=== PATIENT | female | born 1945 | race Caucasian/White ===

== ENCOUNTER 2024-11-05 14:41 | Inpatient (IN) ==
[2024-11-05 15:40] LABS: Hematocrit (blood only) 38.2 % (37.0-47.0); Hemoglobin 12.4 g/dl (12.0-16.0); Immature Granulocytes # (auto) 0.07 K/uL (0.01-0.20); Immature Granulocytes % (auto) 0.7 %; Mean Corpuscular Hemoglobin 30.4 pg (25.0-34.0); Mean Corpuscular Volume 93.6 fL (80.0-100.0); Platelet Count 353 K/uL (130-400); RDW Standard Deviation 46.7 fL (36.4-46.3); Red Blood Count 4.08 M/uL (4.20-5.40); White Blood Count 9.99 K/ul (4.8-10.8)
[2024-11-05 15:57] LABS: Alanine Aminotransferase 11.0 U/L (7-52); Albumin Globulin Ratio 1.3 (0.9-2); Albumin Level 4.1 gm/dl (3.4-5.0); Alkaline Phosphatase 65.0 U/L (34-104); Anion Gap 6.0 (3-11); Bilirubin,Total 0.3 mg/dl (0.2-1.0); Blood Urea Nitrogen 11.0 mg/dl (6-23); Calcium 9.0 mg/dl (8.6-10.3); Carbon Dioxide 26.0 mmol/L (21-32); Chloride 106.0 mmol/L (98-107); Creatinine Clr Calc Pharmacy 42.1 ml/min; Globulin 3.2 gm/dl (2.5-4.0); Glucose 109.0 mg/dl (70-99(Fasting)); Potassium 4.4 mmol/L (3.5-5.1); Sodium 138.0 mmol/L (136-145); Total Protein 7.3 gm/dl (6.0-8.3)
[2024-11-05] MEDS: SODIUM CHLORIDE 0.9% 500 ML IV STA (17:18)
--- NOTE | 2024-11-05 17:18 | Emergency Department Note ---
Impression & Plan Diffuse abdominal pain, Failure of outpatient treatment, Nausea ED Provider Note NAME: RADHA COTE AGE: 79 SEX: F : 1945 ARRIVES VIA: Walk-In INFORMANT: [Patient][] ED PROVIDER(S): [Edwin Watson MD] CHIEF COMPLAINT: Abdominal pain HISTORY OF PRESENT ILLNESS: The patient is an 79-year-old female who has had 2 weeks of symptoms. She has had some nausea and vomiting and some crampy abdominal pain. She has not had a good bowel movement in over 2 weeks. She was seen in the ED twice already. CT imaging did not show any significant constipation or bowel obstruction. CTA did not show any stenosis or clot. The patient states that her symptoms are ongoing. She is not improving, she has progressed to the point now where the pain is constant. There has been no fever, no cough or congestion. No urinary complaints. She did talk with GI today, she was referred to the hospital for admission and an inpatient workup. PMHx/PSHx/Social Hx: See Below PHYSICAL EXAM: GENERAL: Patient is in mild distress from pain HEENT: No acute trauma, normocephalic atraumatic, mucous membranes moist, no nasal congestion. NECK: No stridor, no adenopathy, no meningismus, trachea is midline. LUNGS: Clear to auscultation bilaterally, no wheeze, no rhonchi, breath sounds equal. HEART: Subtle systolic murmur, regular rate and rhythm. ABDOMEN: Soft, tender diffusely about the abdomen, no distention. EXTREMITIES: No cyanosis, full range of motion of all the joints without pain or difficulty. NEUROLOGIC: Oriented x 3, no acute motor or sensory deficits, no focal weakness. SKIN: No jaundice, no diaphoresis. Somewhat pale. DIFFERENTIAL DIAGNOSIS: Bowel ischemia, diverticulitis, colitis, dehydration, constipation, bowel obstruction, urinary retention or UTI, among others. EMERGENCY DEPARTMENT PROCEDURES: MEDICAL DECISION MAKING: There is no leukocytosis or concerning anemia. There is a normal platelet count. No coagulopathy. No renal failure or significant electrolyte abnormality. ECG shows a sinus rhythm, no ST elevation. Cardiac enzyme testing x 1 is not consistent with acute cardiac injury. Lactic acid level is not elevated making bowel ischemia less likely. No findings to suggest pancreatitis. No worrisome liver enzyme elevation. Urinalysis does not show findings of infection. On exam, patient was not toxic or febrile but she was clearly uncomfortable. She had pain to palpate about the abdomen. No abdominal distention. The patient was given IV saline for hydration. She received IV Zofran, IV morphine. She was given IV Tylenol. The patient has failed outpatient management for her discomfort. She has had 2 visits already to the ED. CT imaging so far has been unrevealing. She was sent in today for an inpatient hospitalization and further GI workup. At this point, the patient is not doing well outpatient and is not capable of being discharged home. I do think admission and further workup is warranted. I spoke with the patient and the . I spoke with case management. The on-call hospitalist was consulted. Currently, the cause for her complaints is unclear. Prior/Outside records/notes reviewed: Previous ED visit notes describing her presentation, workup and outpatient plan. ECG per my interpretation: Indication was abdominal pain. The ECG shows a normal sinus rhythm with a rate of 76. There is no ST elevation, no PVCs. The QTc is 405. Continuous Cardiac Monitoring per my interpretation: An order was placed for continuous cardiac monitoring. The monitor shows a rate of 72 with normal sinus rhythm. Imaging/x-ray results per my interpretation: Chronic Medical/Social conditions affecting care: Advanced age. Care/Management discussed with: Case management, the on-call hospitalist. Level of care consideration(s): After review of the information above and other included data: --I believe the patient requires escalation of care to admission DISPOSITION: Admission Past Med/Surg History Problem List (Updated 11/05/24 @ 22:07 by Edwin Watson MD) Nausea (Acute) Failure of outpatient treatment (Acute) Diffuse abdominal pain (Acute) Abnormal finding on CT scan Hypertension Constipation (Acute) Medical History Abdominal pain Surgical History Hx of cataract extraction left Hx of breast lump removal left, benign History of open reduction and internal fixation (ORIF) procedure left wrist>pinning, pin removed later Hx of bladder repair surgery bladder tacking Hx laparoscopic cholecystectomy Hx of abdominal hysterectomy ~over 40 years ago, one ovary remains Hx of colonoscopy most recent 2023 Social History Smoking Status: Never smoker Second Hand Exposure: Yes (hx, years ago); Do You Dip or Chew Tobacco: No; Hx Alcohol Use: No Hx Substance Use: No Preferred Language: Bengali Communication Ability: Effective 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 Beliefs That Will Affect Care: None Current Living Situation: Spouse Feels Safe at Home: Yes Assistive Devices: Denture - Upper and Glasses Allergies Allergies Allergy/AdvReac Type Severity Reaction Status Date / Time No Known Allergies Allergy Verified 11/05/24 17:25 Home Meds Home Medications Medication Instructions Recorded Confirmed amlodipine 10 mg tablet 10 mg PO HS 01/24/24 11/05/24 lisinopril 20 mg tablet 20 mg PO BID 01/24/24 11/05/24 multivitamin 1 tab PO HS 01/24/24 11/05/24 estradiol 0.01% (0.1 mg/gram) 1 applic vaginal DAILY PRN Dryness 11/01/24 11/05/24 vaginal cream inulin-sorbitol 2 gram chewable 1 tab PO DAILY 11/01/24 11/05/24 tablet bevacizumab 1.25 mg/0.05 mL See Rx Instructions .Route .COMPLEX 11/05/24 11/05/24 intravitreal syringe (Avastin) vitamins A,C,G-aqyd-vgjjnp 2,148 2 tab PO BID 11/05/24 11/05/24 mcg-113 mg-45 mg-17.4 mg tablet (PreserVision AREDS) Previous Rx's Medication Instructions Recorded ondansetron 4 mg disintegrating 4 mg PO Q8H PRN nausea and 11/01/24 tablet vomiting #10 tabs ketorolac 10 mg tablet 10 mg PO BID PRN pain #10 tabs 11/03/24 sennosides 8.6 mg tablet (Senna 8.6 mg PO BID PRN constipation #14 11/03/24 Laxative) tabs Results & Data (ED) Vital Signs Vital Signs - 24 hr 11/05/24 14:52 11/05/24 17:00 11/05/24 17:24 Temperature 36.8 C Temperature Source Temporal Artery Scan Pulse Rate 99 H 72 Pulse Rate [Apical] 61 Respiratory Rate 20 16 Respiratory Effort / Characteristics Non-Labored Spontaneous Blood Pressure 148/78 H Blood Pressure [Right Arm] 132/69 Blood Pressure Mean 101 Blood Pressure Mean [Right Arm] 90 Pulse Oximetry 96 96 Oxygen Delivery Method Room Air Room Air Sepsis Recent Fever Within 48 Hours No Sepsis New/Unexplained Change in Mental Status N/A Sepsis Action Taken by Nursing No Action Required 11/05/24 17:24 11/05/24 19:00 11/05/24 21:00 Temperature Temperature Source Pulse Rate 69 Pulse Rate [Apical] 71 65 Respiratory Rate 16 18 18 Respiratory Effort / Characteristics Non-Labored Spontaneous Non-Labored Spontaneous Blood Pressure Blood Pressure [Right Arm] 117/63 134/68 Blood Pressure Mean Blood Pressure Mean [Right Arm] 81 90 Pulse Oximetry 95 92 91 Oxygen Delivery Method Room Air Room Air Room Air Sepsis Recent Fever Within 48 Hours Sepsis New/Unexplained Change in Mental Status Sepsis Action Taken by Correction Medications Current Medication List: was personally reviewed by me Laboratory Data Attestation: I reviewed the patient's lab results. 11/05/24 15:18 11/05/24 15:18 Lab Results 11/05/24 11/05/24 11/05/24 Range/Units 15:18 17:20 18:00 WBC 9.99 (4.8-10.8) K/ul RBC 4.08 L (4.20-5.40) M/uL Hgb 12.4 (12.0-16.0) g/dl Hct 38.2 (37.0-47.0) % MCV 93.6 (80.0-100.0) fL MCH 30.4 (25.0-34.0) pg MCHC 32.5 (32.0-36.0) g/dL RDW Std Deviation 46.7 H (36.4-46.3) fL RDW Coeff of Erica 13.7 (11.5-14.5) % Plt Count 353 (130-400) K/uL MPV 8.9 L (9.4-12.4) fL Immature Gran % (Auto) 0.7 % Neut % (Auto) 73.5 % Lymph % (Auto) 18.2 % Nance % (Auto) 6.6 % Eos % (Auto) 0.6 % Baso % (Auto) 0.4 % Neut # (Auto) 7.34 H (1.40-6.50) K/uL Lymph # (Auto) 1.82 (1.20-3.40) K/uL Nance # (Auto) 0.66 H (0.11-0.59) K/uL Eos # (Auto) 0.06 (0.00-0.50) K/uL Baso # (Auto) 0.04 (0.00-0.20) K/uL Immature Gran # (Auto) 0.07 (0.01-0.20) K/uL PT 10.6 (9.0-12.0) Seconds INR 1.0 (0.9-1.1) APTT 28 (21-31) Seconds PTT Ratio 1.0 Sodium 138 (136-145) mmol/L Potassium 4.4 (3.5-5.1) mmol/L Chloride 106 (98-107) mmol/L Carbon Dioxide 26 (21-32) mmol/L Anion Gap 6 (3-11) BUN 11 (6-23) mg/dl Creatinine 0.92 (0.6-1.2) mg/dl Est Cr Clr Drug Dosing 42.1 ml/min eGFR 62.94 BUN/Creatinine Ratio 12.0 (10-20) Glucose 109 H (70-99(Fasting)) mg/dl Lactate 0.9 (0.4-2.0) mmol/L Calcium 9.0 (8.6-10.3) mg/dl Total Bilirubin 0.3 (0.2-1.0) mg/dl AST 17 (13-39) U/L ALT 11 (7-52) U/L Alkaline Phosphatase 65 (34-104) U/L Troponin I High Sens 2.5 (0-14) pg/ml Total Protein 7.3 (6.0-8.3) gm/dl Albumin 4.1 (3.4-5.0) gm/dl Globulin 3.2 (2.5-4.0) gm/dl Albumin/Globulin Ratio 1.3 (0.9-2) Lipase 22 (11-82) U/L Urine Color Yellow Urine Appearance Clear (Clear) Urine pH 5.5 (4.5-7.5) Ur Specific [place] 1.009 (1.000-1.030) Urine Protein Negative (Negative) Urine Glucose (UA) Negative (Negative) Urine Ketones Negative (Negative) Urine Blood Negative (Negative) Urine Nitrite Negative (Negative) Urine Bilirubin Negative (Negative) Urine Urobilinogen Negative (Negative) Ur Leukocyte Esterase Trace H (Negative) Urine WBC (Auto) 0-5 (0-5) /hpf Urine RBC (Auto) 0-2 (0-2) /hpf U Hyaline Cast (Auto) 0-2 (0-2) /lpf U Epithel Cells (Auto) 0-2 (0-2) /hpf Urine Bacteria (Auto) None Seen (None Seen) Urine Comment Administered Medications Sodium Chloride (Nss) 1,000 mls @ 80 mls/hr IV .[id number] CRISTIAN Stop: 11/06/24 07:29 Last Admin: 11/05/24 19:03 Dose: 80 mls/hr Documented By: RISSA Discontinued Medications Sodium Chloride (Nss) 500 mls @ 999 mls/hr IV .Q31M STA Stop: 11/05/24 17:35 Last Infusion: 11/05/24 18:22 Dose: Infused Documented By: Admin: 11/05/24 17:18 Dose: 999 mls/hr Documented By: RISSA Acetaminophen (Ofirmev) 1,000 mg in 100 mls @ 400 mls/hr IV Q8H CRISTIAN Stop: 11/05/24 19:14 Last Infusion: 11/05/24 21:36 Dose: Infused Documented By: Admin: 11/05/24 19:03 Dose: 400 mls/hr Documented By: RISSA Pantoprazole Sodium (Protonix) 40 mg in 10 mls @ 5 mls/min IV ONE ONE Stop: 11/05/24 20:46 Last Admin: 11/05/24 21:29 Dose: 5 mls/min Documented By: RISSA Lactulose (Lactulose Syrup 20 Gm/30 Ml Udc) 30 gm PO NOW STA Stop: 11/05/24 18:47 Last Admin: 11/05/24 19:05 Dose: 30 gm Documented By: RISSA Magnesium Citrate (Magnesium Citrate 296 Ml/Btl) 148 ml PO TODAY@2200 ONE Stop: 11/05/24 22:01 Last Admin: 11/05/24 21:29 Dose: 148 ml Documented By: RISSA Morphine Sulfate (Morphine Sulfate 4 Mg/Ml 1 Ml Carp\Vial) 4 mg IV NOW STA Stop: 11/05/24 17:06 Last Admin: 11/05/24 17:19 Dose: 4 mg Documented By: RISSA Ondansetron HCl (Ondansetron Inj 2 Mg/Ml 2 Ml Vial) 4 mg IV NOW STA Stop: 11/05/24 17:06 Last Admin: 11/05/24 17:19 Dose: 4 mg Documented By: RISSA Imaging Data Radiologist's Impression: Abdomen/Pelvis CT 11/05/24 18:44 EXAMINATION: Abdomen and pelvis CT without CLINICAL HISTORY: Constipation PRIORS: CT AP 11/03/2024 with TECHNIQUE: Contiguous axial images were obtained through the abdomen and pelvis without the use of intravenous contrast. Sagittal and coronal reformations are supplied. FINDINGS: No acute abnormality in the lung bases. Moderate circumferential wall thickening of the duodenum is present involving the 1st and 2nd portion of the duodenum, with moderate regional inflammatory change, image 27 through 36, series 2. Multiple foci of gas present within the proximal to mid duodenum wall, image 35. The stomach is under distended with possible wall edema in the pylorus. No extraluminal gas or ascites. Severe diverticulosis of the sigmoid colon present. Oral contrast reaches the level of the transverse colon. No dilated loops of bowel. Solid organs are unremarkable. Gallbladder surgically absent. No free fluid in the pelvis. Moderate atherosclerotic disease of the aorta. Moderate osseous demineralization noted. IMPRESSION: Moderate duodenal and pylorus wall thickening with edema and surrounding inflammatory change in the mesenteric fat. A small amount of gas is present in the mid duodenum wall, compatible with duodenitis with duodenal ulcer/peptic ulcer disease, appearing in the interval. No acute complication at this time. GI consultation suggested. ACT 112: Positive. There are findings on this examination that require communication between the performing entity and the patient following Patient Test Result Information Act ([place] ACT 112) guidelines. Electronically signed by Edilma Emerson 11-05-2024 7:45 PM Discharge Plan Visit Data Chief Complaint: Constipation Stated Complaint: PAIN IN GROIN ED Provider: Edwin Watson Discharge Problem: Diffuse abdominal pain, Failure of outpatient treatment, Nausea Patient Disposition: Admitted As Inpatient Condition: Fair Forms Stand Alone Forms: [employer] Prescriptions Prescriptions: No Action estradiol 0.01 % (0.1 mg/gram) cream 1 applic VAGINAL DAILY PRN (Reason: Dryness) inulin-sorbitol 2 gram Tablet,Chewable 1 tab PO DAILY ondansetron 4 mg tablet,disintegrating 4 mg PO Q8H PRN (Reason: nausea and vomiting) Qty: 10 0RF multivitamin Tablet 1 tab PO HS lisinopril 20 mg Tablet 20 mg PO BID amlodipine 10 mg Tablet 10 mg PO HS ketorolac 10 mg tablet 10 mg PO BID PRN (Reason: pain) Qty: 10 0RF sennosides [Senna Laxative] 8.6 mg tablet 8.6 mg PO BID PRN (Reason: constipation) Qty: 14 0RF PreserVision AREDS 2,148 mcg-113 mg-45 mg-17.4mg Tablet 2 tab PO BID Rx Instructions: administer with AM and PM meals bevacizumab [Avastin] 1.25 mg/0.05 mL Syringe See Rx Instructions .ROUTE .COMPLEX Rx Instructions: last injection 4 mo ago Referrals Referrals: Nathan Kellogg MD [Primary Care Provider] -
[2024-11-05] MEDS: MoRPHine SULFATE 4 MG/ML 1 ML CARP\\VIAL IV STA (17:19)
[2024-11-05] MEDS: ONDANSETRON INJ 2 MG/ML 2 ML VIAL IV STA (17:19)
[2024-11-05 17:49] LABS: Lipase 22.0 U/L (11-82)
[2024-11-05 18:07] LABS: INR 1.0 (0.9-1.1); Partial Thromboplastin Time 28 Seconds (21-31); Prothrombin Time 10.6 Seconds (9.0-12.0)
--- NOTE | 2024-11-05 18:07 | History & Physical Report ---
Date of Service November 05, 2024 Assessment & Plan (1) Constipation: (2) Abdominal pain: Plan: This is an 79-year-old female with PMH of HTN, macular degeneration who recently established with [facility] due to constipation concern starting 3 weeks ago. Since 10/31 has been seen in clinic by GI and in [facility] ER twice - trialed dulcolax, fleet enemas x 2, discontinued fiber pill, Miralax BID, Senokot bid -11/01: CT abd/pelvis without obstruction or acute change -11/03: CTA abd/pelvis no acute finding or significant change -Directed by GI to ER today due to ongoing discomfort and no bowel movement in 2 weeks -Given Lactulose x 1. Mag citrate added for this evening as needed -CT abd pelvis wo con - moderate duodenal and pylorus wall thickening with edema and surrounding inflammatory change in the mesenteric fat. A small amount of gas is present in the mid duodenum wall, compatible with duodenitis with duodenal ulcer/peptic ulcer disease, appearing in the interval. Severe diverticulosis seen in colon, no diverticulitis. No acute complication at this time. GI consultation suggested. -GI consulted for tomorrow -Adding IV PPI -NPO at midnight -Pain control (3) Hypertension: Plan: Normotensive at 117/63. Resume home amlodipine and lisinopril when diet advanced (4) Abnormal finding on CT scan: Plan: Incidental Findings on CT abd/pelvis 11/01/24- There is moderate atherosclerotic calcification and mild ectasia of the abdominal aorta. Further work up, man agement, and follow-up as outpatient No chest pain, HS troponin WNL, ECG ordered in ED - pending, follow Plan DVT Ppx: SCDs for now in case of endoscopy tomorrow Code status: FULL PCP: Nathan Kellogg Dispo: Admitted to med/surg Patient seen in collaboration with Dr. Marie. Please see addendum. I spent a total of 65 minutes coordinating, documenting, and providing care for this patient excluding time spent in the performance of separately billed services or time spent by another provider/QHP. History of Present Illness Chief Complaint: Constipation, sent in by GI Primary Care Provider: Nathan Kellogg MD This is an 79-year-old female with PMH of HTN, macular degeneration who recently established with [facility] due to constipation concern starting 3 weeks ago. History obtained from patient and chart review. Patient experiencing constipation and some abdominal pain and saw GI in clinic initially on 10/31. Dulcolax 5 mg had been ineffective. Passed some liquid with "chunks of stool". Told to stop fiber pill, administered Fleet enema, MiraLAX twice daily. Presented to the ER the next day after no bowel movement and episode of vomiting x 1. CT abd/pelvis done in ER on the 11/01 without blockage seen. Returned to ED on 11/03 with ongoing pain and underwent abdominal CTA that showed no acute finding or significant change. Mild fluid throughout the large bowel. Was prescribed tramadol and Senokot 8.6 mg twice daily and discharged home. Followed up over [email or web address] messaging with GI provider earlier today and sent over for further workup and consideration of colonoscopy. Still tolerating PO liquids and food. Had a large dinner last night of Romansh food. No true bowel movement in 2 weeks but not even passing small amounts of stool or liquid per rectum for 5 days. Abdominal pain is in bandlike distribution across lower abdomen, R>L. Denies issues with constipation or other GI pathology in the past. Does not routinely use NSAIDs. No known recent gastroenteritis. No F/C, lightheadedness, headache, CP, SOB, nausea, vomiting, dysuria. Allergies Allergy/AdvReac Type Severity Reaction Status Date / Time No Known Allergies Allergy Verified 11/05/24 17:25 Home Medications Medication Instructions Recorded Confirmed Type amlodipine 10 mg tablet 10 mg PO HS 01/24/24 11/05/24 History lisinopril 20 mg tablet 20 mg PO BID 01/24/24 11/05/24 History multivitamin 1 tab PO HS 01/24/24 11/05/24 History estradiol 0.01% (0.1 mg/gram) 1 applic vaginal DAILY PRN Dryness 11/01/24 11/05/24 History vaginal cream inulin-sorbitol 2 gram chewable 1 tab PO DAILY 11/01/24 11/05/24 History tablet ondansetron 4 mg disintegrating 4 mg PO Q8H PRN nausea and 11/01/24 11/05/24 Rx tablet vomiting #10 tabs ketorolac 10 mg tablet 10 mg PO BID PRN pain #10 tabs 11/03/24 11/05/24 Rx sennosides 8.6 mg tablet (Senna 8.6 mg PO BID PRN constipation #14 11/03/24 11/05/24 Rx Laxative) tabs bevacizumab 1.25 mg/0.05 mL See Rx Instructions .Route .COMPLEX 11/05/24 11/05/24 History intravitreal syringe (Avastin) vitamins A,C,V-uxxm-fudzka 2,148 2 tab PO BID 11/05/24 11/05/24 History mcg-113 mg-45 mg-17.4 mg tablet (PreserVision AREDS) Past Med/Surg History Problem List (Updated 11/05/24 @ 20:32 by Jada Kidd PA-C) Abnormal finding on CT scan Hypertension Constipation (Acute) Abdominal pain (Acute) Medical History Hypertension Surgical History Hx of cataract extraction left Hx of breast lump removal left, benign History of open reduction and internal fixation (ORIF) procedure left wrist>pinning, pin removed later Hx of bladder repair surgery bladder tacking Hx laparoscopic cholecystectomy Hx of abdominal hysterectomy ~over 40 years ago, one ovary remains Hx of colonoscopy most recent 2023 Social History Smoking Status: Never smoker Second Hand Exposure: Yes (hx, years ago); Do You Dip or Chew Tobacco: No; Hx Alcohol Use: No Hx Substance Use: No Preferred Language: German Communication Ability: Effective Supervisor [employer] Required: No Beliefs That Will Affect Care: None Current Living Situation: Spouse Feels Safe at Home: Yes Assistive Devices: Denture - Upper and Glasses Review of Systems Review of Systems: At least ten systems reviewed and negative except as noted in the HPI. Physical Exam Physical Exam: General Appearance: WD/WN, vitals as above, NAD, sitting up in bed, pleasant but appears uncomfortable Head: normocephalic, atraumatic Eyes: normal inspection, PERRL, conjunctivae normal, anicteric sclerae ENT: external ear and nose normal, oropharynx normal Neck: normal visual inspection Respiratory: normal respiratory effort, lungs clear to auscultation, no wheeze, rales, rhonchi. No accessory muscle use Cardiovascular: regular rate, rhythm, normal peripheral pulses, no BLE edema Abdomen/GI: +hypoactive bowel sounds, soft, TTP RLQ > LLQ Extremities/Musculoskeletal: no cyanosis or clubbing, extremities motor strength 5/5 Neurologic: PERRL, EOMI, accommodation nl, no face palsy, no dysarthria, CN's II-XI intact bilaterally and moves all extremities Psychiatric: A+Ox3, euthymic affect Skin: no rashes, normal color, warm/dry Results & Data Results & Data Vital Signs (Past 12 Hours) Vital Signs Temp Pulse Pulse Resp BP BP Pulse Ox 11/05/24 17:24 69 16 95 11/05/24 17:24 61 16 132/69 96 11/05/24 17:00 72 11/05/24 14:52 36.8 C 99 H 20 148/78 H 96 O2 Del Method 11/05/24 17:24 Room Air 11/05/24 17:24 Room Air 11/05/24 17:00 11/05/24 14:52 Room Air Laboratory Results Short CBC 11/05/24 Range/Units 15:18 WBC 9.99 (4.8-10.8) K/ul Hgb 12.4 (12.0-16.0) g/dl Hct 38.2 (37.0-47.0) % Plt Count 353 (130-400) K/uL BMP 11/05/24 15:18 Sodium 138 Potassium 4.4 Chloride 106 Carbon Dioxide 26 BUN 11 Creatinine 0.92 Glucose 109 H Calcium 9.0 Liver Function 11/05/24 Range/Units 15:18 Total Bilirubin 0.3 (0.2-1.0) mg/dl AST 17 (13-39) U/L ALT 11 (7-52) U/L Alkaline Phosphatase 65 (34-104) U/L Albumin 4.1 (3.4-5.0) gm/dl Urine 11/05/24 Range/Units 18:00 Urine Color Yellow Urine Appearance Clear (Clear) Urine pH 5.5 (4.5-7.5) Ur Specific [place] 1.009 (1.000-1.030) Urine Protein Negative (Negative) Urine Glucose (UA) Negative (Negative) Diagnostic Findings Abdomen/Pelvis CT 11/05/24 18:44 EXAMINATION: Abdomen and pelvis CT without CLINICAL HISTORY: Constipation PRIORS: CT AP 11/03/2024 with TECHNIQUE: Contiguous axial images were obtained through the abdomen and pelvis without the use of intravenous contrast. Sagittal and coronal reformations are supplied. FINDINGS: No acute abnormality in the lung bases. Moderate circumferential wall thickening of the duodenum is present involving the 1st and 2nd portion of the duodenum, with moderate regional inflammatory change, image 27 through 36, series 2. Multiple foci of gas present within the proximal to mid duodenum wall, image 35. The stomach is under distended with possible wall edema in the pylorus. No extraluminal gas or ascites. Severe diverticulosis of the sigmoid colon present. Oral contrast reaches the level of the transverse colon. No dilated loops of bowel. Solid organs are unremarkable. Gallbladder surgically absent. No free fluid in the pelvis. Moderate atherosclerotic disease of the aorta. Moderate osseous demineralization noted. IMPRESSION: Moderate duodenal and pylorus wall thickening with edema and surrounding inflammatory change in the mesenteric fat. A small amount of gas is present in the mid duodenum wall, compatible with duodenitis with duodenal ulcer/peptic ulcer disease, appearing in the interval. No acute complication at this time. GI consultation suggested. ACT 112: Positive. There are findings on this examination that require communication between the performing entity and the patient following Patient Test Result Information Act ([place] ACT 112) guidelines. Electronically signed by Edilma Emerson 11-05-2024 7:45 PM
[2024-11-05 18:23] LABS: Appearance Urine Clear (Clear); Bacteria Urine Automated None Seen (None Seen); Cast Urine Automated 0-2 /lpf (0-2); Epithelial Cell Urine Auto 0-2 /hpf (0-2); Glucose Urine UA Negative (Negative); RBC Urine Automated 0-2 /hpf (0-2); WBC Urine Automated 0-5 /hpf (0-5)
[2024-11-05] MEDS ORDERED: MoRPHine SULFATE 2 MG/ML CARP IV PRN (18:49)
--- NOTE | 2024-11-05 18:52 | Communication Note ---
Date of Service: November 05, 2024 Attending Addendum: Case reviewed with the advanced practitioner. I have personally performed a history and physical examination on the patient. I have reviewed the advanced practitioner's documentation on the date of service referenced in note, and I agree with, and take responsibility for the plan of care. please refer to her notes for full details patient seen and examined, records reviewed by myself as well on exam, patient seen resting in bed, not in distress states she still has lower abdominal discomfort, morphine helping no nausea no chest pain, dyspnea, palpitations, dizziness no other symptoms VS noted and reviewed oriented x3, not in distress, speaks in sentences with no effort nor accessory muscle use normal rate, regular rhythm, no murmurs clear breath sounds bilaterally non distended, (+) hypoactive bowel sounds, soft, nontender no bipedal edema, erythema, warmth no neuro deficits all labs, imaging noted and reviewed ASSESSMENT AND PLAN> CONSTIPATION r/o OBSTRUCTION persistent, not responding to Miralax last BM repeat CT abd/pelvis Lactulose ordered PRN Mg Citrate NPO for now until CT abd/pelvis results in Incidental Findings on CT abd/pelvis 11/01/24 There is moderate atherosclerotic calcification and mild ectasia of the abdominal aorta. - Further work up, management, and ff up as outpatient other diagnoses and plan of care as per advanced practitioner's notes I spent a total of 40 minutes coordinating, documenting, and providing care for this patient, excluding time spent in the performance of separately billed services or time spent by another provider/QHP. Juan J Marie MD
[2024-11-05] MEDS ORDERED: MELATONIN 3 MG TAB PO PRN (18:58)
[2024-11-05] MEDS ORDERED: ONDANSETRON INJ 2 MG/ML 2 ML VIAL IV PRN (18:58)
[2024-11-05] MEDS: ACETAMINOPHEN 1,000 MG/100 ML VIAL IV SCH (19:03)
[2024-11-05] MEDS: SODIUM CHLORIDE 0.9% 1,000 ML IV SCH (19:03)
[2024-11-05] MEDS: LACTULOSE SYRUP 20 GM/30 ML UDC PO STA (19:05)
--- NOTE | 2024-11-05 19:45 | CT Scan Report ---
EXAMINATION: Abdomen and pelvis CT without CLINICAL HISTORY: Constipation PRIORS: CT AP 11/03/2024 with TECHNIQUE: Contiguous axial images were obtained through the abdomen and pelvis without the use of intravenous contrast. Sagittal and coronal reformations are supplied. FINDINGS: No acute abnormality in the lung bases. Moderate circumferential wall thickening of the duodenum is present involving the 1st and 2nd portion of the duodenum, with moderate regional inflammatory change, image 27 through 36, series 2. Multiple foci of gas present within the proximal to mid duodenum wall, image 35. The stomach is under distended with possible wall edema in the pylorus. No extraluminal gas or ascites. Severe diverticulosis of the sigmoid colon present. Oral contrast reaches the level of the transverse colon. No dilated loops of bowel. Solid organs are unremarkable. Gallbladder surgically absent. No free fluid in the pelvis. Moderate atherosclerotic disease of the aorta. Moderate osseous demineralization noted. IMPRESSION: Moderate duodenal and pylorus wall thickening with edema and surrounding inflammatory change in the mesenteric fat. A small amount of gas is present in the mid duodenum wall, compatible with duodenitis with duodenal ulcer/peptic ulcer disease, appearing in the interval. No acute complication at this time. GI consultation suggested. ACT 112: Positive. There are findings on this examination that require communication between the performing entity and the patient following Patient Test Result Information Act ([place] ACT 112) guidelines. Electronically signed by Edilma Emerson 11-05-2024 7:45 PM
[2024-11-05] MEDS: MAGNESIUM CITRATE 296 ML/BTL PO ONE (21:29)
[2024-11-05] MEDS: PANTOprazole 40 MG/10 ML SYR IV ONE (21:29)
[2024-11-06] MEDS: ACETAMINOPHEN 1,000 MG/100 ML VIAL IV SCH (02:15)
[2024-11-06] MEDS: CEROVITE ADV FORMULA TAB PO SCH (07:39)
[2024-11-06] MEDS: PANTOprazole 40 MG/10 ML SYR IV SCH (07:39)
[2024-11-06 07:45] LABS: Hematocrit (blood only) 33.6 % (37.0-47.0); Hemoglobin 10.6 g/dl (12.0-16.0); Mean Corpuscular Hemoglobin 30.1 pg (25.0-34.0); Mean Corpuscular Volume 95.5 fL (80.0-100.0); Platelet Count 303 K/uL (130-400); RDW Standard Deviation 49.1 fL (36.4-46.3); Red Blood Count 3.52 M/uL (4.20-5.40); White Blood Count 8.71 K/ul (4.8-10.8)
[2024-11-06 08:12] LABS: Alanine Aminotransferase 11.0 U/L (7-52); Albumin Globulin Ratio 1.6 (0.9-2); Albumin Level 3.6 gm/dl (3.4-5.0); Alkaline Phosphatase 50.0 U/L (34-104); Anion Gap 4.0 (3-11); Bilirubin,Total 0.3 mg/dl (0.2-1.0); Blood Urea Nitrogen 8.0 mg/dl (6-23); Calcium 8.1 mg/dl (8.6-10.3); Carbon Dioxide 27.0 mmol/L (21-32); Chloride 110.0 mmol/L (98-107); Creatinine Clr Calc Pharmacy 48.0 ml/min; Globulin 2.3 gm/dl (2.5-4.0); Glucose 90.0 mg/dl (70-99(Fasting)); Potassium 4.0 mmol/L (3.5-5.1); Sodium 141.0 mmol/L (136-145); Total Protein 5.9 gm/dl (6.0-8.3)
--- NOTE | 2024-11-06 10:09 | Gastrointestinal Consultation ---
Date of Consultation November 06, 2024 Assessment & Plan (1) Abnormal finding on CT scan: (2) Constipation: Plan Patient has been able to move her bowels since doing a course of mag citrate and starting lactulose. She did have CT imaging concerning for duodenitis/Duodenal ulcer noted. Overall, she feels much improved. Case discussed with Dr. Montano. - continue with lactulose 20gm bid. She can titrate the dosage as needed. Would recommend she continue this upon discharge. - continue protonix 40mg once daily given duodenitis on imaging. - would recommend she follow up with her regular GI at [facility] upon discharge. Consideration should be given to an EGD as outpatient given the CT findings. - Further recommendations to come with Supervising GI provider on medical rounds. Please see co-signature comments. Supervising Physician Co-Signing Physician Notes Patient is a very pleasant 79-year-old female that we are asked to see regarding constipation. She has been following with GI as an outpatient for constipation and has failed enemas, fiber supplements, MiraLAX, Dulcolax, and Senokot. CT scan on admission was negative for any obstruction. Interestingly, it did shows some duodenal thickening with a small pocket of air concerning for duodenitis or peptic ulcer disease. She herself is asymptomatic from an upper GI standpoint. She denies any epigastric pain. She has not had any issues with reflux. In regards to these findings, she will eventually need an EGD. This can be done by her usual installer inspector final. In the meantime, we will start her on Protonix 40 mg daily. Here, she has been given lactulose which she responded quite well to. She has had numerous bowel movements throughout the night and states she is feeling much better. I agree with above recs that she should be maintained on lactulose daily or twice daily as an outpatient. She is stable from a GI standpoint. She is up-to-date with her colonoscopies. History of Present Illness Reason for Consultation: constipation Requesting Physician: aJda Kidd PA-C Attending Physician: Delmy Perez MD History of Present Illness Patient is an 79 year old female with a past medical history of HTN, macular degeneration who presented to the ED with complaints of constipation in the setting of not having a bowel movement for 16 days. She recently established with [facility] due to constipation concerns. History obtained from patient and chart review. As an outpatient, patient had failed dulcolax, senna, fleets enemas, fiber, and miralax. She tells me that she has been evaluated for this several times in the past few weeks. CT abd/pelvis done in ER on the 11/01 without blockage seen. She had returned to ED on 11/03 with ongoing pain and underwent abdominal CTA that had shown no acute finding or significant change. Mild fluid throughout the large bowel. Was prescribed tramadol and Senokot 8.6 mg twice daily and discharged home. She returned last evening with ongoing symptoms. Since coming to [facility] on this admission, she was given mag citrate and lactulose and tells me that this did lead to her being able to move her bowels. Since moving her bowels, she tells me that her abdominal pain has improved. no nausea, vomiting, heartburn, dysphagia, unintentional weight loss, blood in the stools or melena. She reports her last colonoscopy was done about 3 years ago and was unremarkable. I do not have these records. no nsaid use. 11/06/24 wbc 8.7, hgb 10.6, hct 33.6, plts 303, Na 141, K 4, BUN 8, Cr 0.74. LFTs unremarkable. CT A/P 11/05/24 Moderate duodenal and pylorus wall thickening with edema and surrounding inflammatory change in the mesenteric fat. A small amount of gas is present in the mid duodenum wall, compatible with duodenitis with duodenal ul cer/peptic ulcer disease, appearing in the interval. No acute complication at this time. GI consultation suggested. Allergies Allergy/AdvReac Type Severity Reaction Status Date / Time No Known Allergies Allergy Verified 11/05/24 17:25 Home Medications Medication Instructions Recorded Confirmed Type amlodipine 10 mg tablet 10 mg PO HS 01/24/24 11/05/24 History lisinopril 20 mg tablet 20 mg PO BID 01/24/24 11/05/24 History multivitamin 1 tab PO HS 01/24/24 11/05/24 History estradiol 0.01% (0.1 mg/gram) 1 applic vaginal DAILY PRN Dryness 11/01/24 11/05/24 History vaginal cream inulin-sorbitol 2 gram chewable 1 tab PO DAILY 11/01/24 11/05/24 History tablet ondansetron 4 mg disintegrating 4 mg PO Q8H PRN nausea and 11/01/24 11/05/24 Rx tablet vomiting #10 tabs ketorolac 10 mg tablet 10 mg PO BID PRN pain #10 tabs 11/03/24 11/05/24 Rx sennosides 8.6 mg tablet (Senna 8.6 mg PO BID PRN constipation #14 11/03/24 11/05/24 Rx Laxative) tabs bevacizumab 1.25 mg/0.05 mL See Rx Instructions .Route .COMPLEX 11/05/24 11/05/24 History intravitreal syringe (Avastin) vitamins A,C,Z-nqrt-wbcfnv 2,148 2 tab PO BID 11/05/24 11/05/24 History mcg-113 mg-45 mg-17.4 mg tablet (PreserVision AREDS) Patient History Medical History Abdominal pain Surgical History Hx of cataract extraction left Hx of breast lump removal left, benign History of open reduction and internal fixation (ORIF) procedure left wrist>pinning, pin removed later Hx of bladder repair surgery bladder tacking Hx laparoscopic cholecystectomy Hx of abdominal hysterectomy ~over 40 years ago, one ovary remains Hx of colonoscopy most recent 2023 Social History Smoking Status: Never smoker Second Hand Exposure: No; Do You Dip or Chew Tobacco: No; Tobacco Cessation Education Requested by Patient: No Hx Alcohol Use: No Hx Substance Use: No Preferred Language: Liberian Communication Ability: Effective Gaming Surveillance Observer Required: No Beliefs That Will Affect Care: None Current Living Situation: Spouse and Family Current Living Situation Comment: and daughter Other Information That Helps Us Care for You: No Feels Safe at Home: Yes Safety Concerns: Feels Safe At This Time Assistive Devices: None Review of Systems Review of Systems: All systems reviewed & are unremarkable except as noted in HPI & below Physical Exam Constitutional: WD/WN, vitals as above Respiratory: normal respiratory effort, lungs clear to auscultation Cardiovascular: Rate/Rhythm: regular rate and regular rhythm Gastrointestinal (Abdomen): normal bowel sounds, soft, nontender, no hepatosplenomegaly Psychiatric: Orientation: alert and oriented x 3 Affect: euthymic affect Results & Data Vital Signs (Past 12 Hours) Vital Signs Temp Pulse Pulse Pulse Resp BP BP 11/06/24 08:00 97.5 F L 68 16 122/70 11/06/24 01:11 97.3 F L 72 18 114/66 11/06/24 00:33 62 20 11/06/24 00:30 66 19 118/59 L 11/05/24 23:13 66 20 135/73 11/05/24 22:54 74 18 111/65 11/05/24 22:43 70 Pulse Ox O2 Del Method 11/06/24 08:00 94 Room Air 11/06/24 01:11 95 Room Air 11/06/24 00:33 96 Room Air 11/06/24 00:30 96 Room Air 11/05/24 23:13 95 Room Air 11/05/24 22:54 94 Room Air 11/05/24 22:43 93 Coding Level of Care Code 15098 INT INP/OBS CARE 2/55MIN Diagnoses Abnormal finding on CT scan R93.89 Constipation K59.00
--- NOTE | 2024-11-06 12:56 | Hospitalist Progress Note ---
Date of Service November 06, 2024 Assessment & Plan (1) Constipation: (2) Abdominal pain: Plan: This is an 79-year-old female with PMH of HTN, macular degeneration who recently established with [facility] due to constipation concern starting 3 weeks ago. Since 10/31 has been seen in clinic by GI and in [facility] ER twice - trialed dulcolax, fleet enemas x 2, discontinued fiber pill, Miralax BID, Senokot bid -11/01: CT abd/pelvis without obstruction or acute change -11/03: CTA abd/pelvis no acute finding or significant change -Directed by GI to ER today due to ongoing discomfort and no bowel movement in 2 weeks -Given Lactulose x 1. Mag citrate added for this evening as needed -CT abd pelvis wo con - moderate duodenal and pylorus wall thickening with edema and surrounding inflammatory change in the mesenteric fat. A small amount of gas is present in the mid duodenum wall, compatible with duodenitis with duodenal ulcer/peptic ulcer disease, appearing in the interval. Severe diverticulosis seen in colon, no diverticulitis. No acute complication at this time. GI consultation suggested. Received lactulose and has been having bowel movements Abdominal symptoms are improved She has been getting Protonix p.o. for possible duodenitis Appreciate GI input and recommendation Will observe her tonight likely discharge tomorrow Duodenitis Abdominal discomfort/pain likely secondary to duodenitis Has been getting Protonix and will continue on discharge Will need outpatient GI evaluation (3) Hypertension: Plan: Normotensive at 117/63. Resume home amlodipine and lisinopril when diet advanced Blood pressure is controlled now (4) Abnormal finding on CT scan: Plan: Incidental Findings on CT abd/pelvis 11/01/24- There is moderate atherosclerotic calcification and mild ectasia of the abdominal aorta. Further work up, management, and follow-up as outpatient No chest pain, HS troponin WNL, ECG ordered in ED - pending, follow As above Plan DVT Ppx: SCDs for now in case of endoscopy tomorrow Code status: FULL PCP: Nathan Kellogg Dispo: Admitted to med/surg Admission and Anticipated Discharge Date Admission Date: November 05, 2024 Subjective The patient was seen and examined in medical telemetry unit She was admitted with abdominal pain and noted to have constipation She has been feeling much better and has had bowel movement following lactulose Denies any significant symptoms today Review of Systems Review of Systems: All systems reviewed and are unremarkable except as noted below Physical Exam Physical Exam: Lying in bed without any acute distress Constitutional: + ill appearing and average body habitus Eyes: PERRL, conjunctivae normal, anicteric sclerae ENMT: external ear and nose normal, oropharynx normal Neck: trachea midline, no thyromegaly Respiratory: no respiratory distress Auscultation: lungs clear to auscultation bilaterally Cardiovascular: Rate/Rhythm: regular rate and regular rhythm; not tachycardic Heart Sounds: normal S1 and normal S2; no murmur Extremities: no edema Gastrointestinal (Abdomen): Inspection/Auscultation: normal bowel sounds; abdomen not distended Percussion/Palpation: + abdomen tender (Mildly tender in the epigastrium) and abdomen soft Musculoskeletal: No acute arthritis involving any of the joint Neurologic: normal touch/pain/proprioception and moves all extremities; no focal motor deficits Lymphatic: no cervical or axillary lymphadenopathy Results & Data Results & Data Vital Signs (Past 12 Hours) Vital Signs Temp Pulse Resp BP Pulse Ox O2 Del Method 11/06/24 08:00 36.4 C L 68 16 122/70 94 Room Air 11/06/24 01:11 36.3 C L 72 18 114/66 95 Room Air Laboratory Results Short CBC 11/05/24 11/06/24 Range/Units 15:18 05:48 WBC 9.99 8.71 (4.8-10.8) K/ul Hgb 12.4 10.6 L (12.0-16.0) g/dl Hct 38.2 33.6 L (37.0-47.0) % Plt Count 353 303 (130-400) K/uL [facility] 11/05/24 11/06/24 15:18 05:48 Sodium 138 141 Potassium 4.4 4.0 Chloride 106 110 H Carbon Dioxide 26 27 BUN 11 8 Creatinine 0.92 0.74 Glucose 109 H 90 Calcium 9.0 8.1 L Liver Function 11/05/24 11/06/24 Range/Units 15:18 05:48 Total Bilirubin 0.3 0.3 (0.2-1.0) mg/dl AST 17 17 (13-39) U/L ALT 11 11 (7-52) U/L Alkaline Phosphatase 65 50 (34-104) U/L Albumin 4.1 3.6 (3.4-5.0) gm/dl Urine 11/05/24 Range/Units 18:00 Urine Color Yellow Urine Appearance Clear (Clear) Urine pH 5.5 (4.5-7.5) Ur Specific [place] 1.009 (1.000-1.030) Urine Protein Negative (Negative) Urine Glucose (UA) Negative (Negative) Medications Administered Current Inpatient Medications Amlodipine Besylate (Amlodipine Besylate 5 Mg Tab) 2.5 mg PO HS [facility]STIAN Stop: 12/06/24 20:59 Acetaminophen (Ofirmev) 1,000 mg in 100 mls @ 400 mls/hr IV Q8H [facility]STIAN Stop: 11/09/24 02:59 Last Infusion: 11/06/24 12:32 Dose: Infused Pantoprazole Sodium (Protonix) 40 mg in 10 mls @ 5 mls/min IV DAILY [facility]IAN Stop: 12/06/24 08:59 Last Admin: 11/06/24 07:39 Dose: 5 mls/min Lactulose (Lactulose Syrup 20 Gm/30 Ml Udc) 20 gm PO BID C[facility]STIAN Stop: 12/06/24 20:59 Lisinopril (Lisinopril 5 Mg Tab) 5 mg PO DAILY C[facility]STIAN Stop: 12/06/24 08:59 Last Admin: 11/06/24 07:38 Dose: 5 mg Melatonin (Melatonin 3 Mg Tab) 3 mg PO HS PRN PRN Reason: Insomnia Stop: 12/05/24 18:57 Morphine Sulfate (Morphine Sulfate 2 Mg/Ml Carp) 2 mg IV Q4H PRN PRN Reason: Severe Pain (Scale 7, 8, 9,10) Stop: 11/19/24 18:48 Multivitamins (Multivitamin Tab) 1 tab PO HS [facility] Stop: 12/06/24 20:59 Multivitamins/Minerals (Cerovite Adv Formula Tab) 1 tab PO BIDM [facility] Stop: 12/06/24 07:59 Last Admin: 11/06/24 07:39 Dose: 1 tab Ondansetron HCl (Ondansetron Inj 2 Mg/Ml 2 Ml Vial) 4 mg IV Q6H PRN PRN Reason: Nausea Stop: 12/05/24 18:57
[2024-11-06] MEDS ORDERED: Nursing to Pharmacy Communication SCH (13:00)
[2024-11-06] MEDS: LACTULOSE SYRUP 20 GM/30 ML UDC PO SCH (20:31)
[2024-11-06] MEDS: MULTIVITAMIN TAB PO SCH (20:31)
--- NOTE | 2024-11-07 05:45 | Electrocardiogram Report ---
Test Reason : Blood Pressure : */* mmHG Vent. Rate : 76 BPM Atrial Rate : 76 BPM P-R Int : 122 ms QRS Dur : 68 ms QT Int : 360 ms P-R-T Axes : 5 -2 56 degrees QTcB Int : 405 ms Normal sinus rhythm Normal ECG When compared with ECG of 03-Nov-2024 16:00, No significant change was found Confirmed by Edmundo Oswald ([id number]) on 11/07/2024 5:45:36 AM Referred By: REFERRED SELF Confirmed By: Edmundo Oswald
[2024-11-07 08:03] VITALS: BP 131/62; RESP 16; TEMP 98.2; O2SAT 94
--- NOTE | 2024-11-07 13:24 | Hospitalist Progress Note ---
Date of Service November 07, 2024 Assessment & Plan (1) Constipation: (2) Abdominal pain: Plan: This is an 79-year-old female with PMH of HTN, macular degeneration who recently established with [facility] due to constipation concern starting 3 weeks ago. Since 10/31 has been seen in clinic by GI and in [facility] ER twice - trialed dulcolax, fleet enemas x 2, discontinued fiber pill, Miralax BID, Senokot bid -11/01: CT abd/pelvis without obstruction or acute change -11/03: CTA abd/pelvis no acute finding or significant change -Directed by GI to ER today due to ongoing discomfort and no bowel movement in 2 weeks -Given Lactulose x 1. Mag citrate added for this evening as needed -CT abd pelvis wo con - moderate duodenal and pylorus wall thickening with edema and surrounding inflammatory change in the mesenteric fat. A small amount of gas is present in the mid duodenum wall, compatible with duodenitis with duodenal ulcer/peptic ulcer disease, appearing in the interval. Severe diverticulosis seen in colon, no diverticulitis. No acute complication at this time. GI consultation suggested. Received lactulose and has been having bowel movements Abdominal symptoms are improved She has been getting Protonix p.o. for possible duodenitis Appreciate GI input and recommendation Will observe her tonight likely discharge tomorrow Her diarrhea is improving and no more constipated She was advised to take oral laxatives as an outpatient Duodenitis Abdominal discomfort/pain likely secondary to duodenitis Has been getting Protonix and will continue on discharge Will need outpatient GI evaluation will start Protonix 40 mg once daily to continue (3) Hypertension: Plan: Normotensive at 117/63. Resume home amlodipine and lisinopril when diet advanced Blood pressure is controlled now Her blood pressure medications have been restarted (4) Abnormal finding on CT scan: Plan: Incidental Findings on CT abd/pelvis 11/01/24- There is moderate atherosclerotic calcification and mild ectasia of the abdominal aorta. Further work up, management, and follow-up as outpatient No chest pain, HS troponin WNL, ECG ordered in ED - pending, follow As above Plan DVT Ppx: SCDs for now in case of endoscopy tomorrow Code status: FULL PCP: Nathan Kellogg Dispo: Admitted to med/surg She will be discharged home this afternoon Admission and Anticipated Discharge Date Admission Date: November 05, 2024 Subjective The patient was seen and examined in medical telemetry unit She was admitted with abdominal pain and noted to have constipation She has been feeling much better and has had bowel movement following lactulose Denies any significant symptoms today 11/07/2024 The patient was seen and examined in medical telemetry unit in presence of the family members She has been feeling much better and constipation is resolved Her abdominal pain seems to be improved a lot Review of Systems Review of Systems: All systems reviewed and are unremarkable except as noted below Physical Exam Physical Exam: Lying in bed without any acute distress Constitutional: + ill appearing and average body habitus Eyes: PERRL, conjunctivae normal, anicteric sclerae ENMT: external ear and nose normal, oropharynx normal Neck: trachea midline, no thyromegaly Respiratory: no respiratory distress Auscultation: lungs clear to auscultation bilaterally Cardiovascular: Rate/Rhythm: regular rate and regular rhythm; not tachycardic Heart Sounds: normal S1 and normal S2; no murmur Extremities: no edema Gastrointestinal (Abdomen): Inspection/Auscultation: normal bowel sounds; abdomen not distended Percussion/Palpation: + abdomen tender (Mildly tender in the epigastrium) and abdomen soft Neurologic: normal touch/pain/proprioception and moves all extremities; no focal motor deficits Lymphatic: no cervical or axillary lymphadenopathy Results & Data Results & Data Vital Signs (Past 12 Hours) Vital Signs Temp Pulse Resp BP Pulse Ox O2 Del Method 11/07/24 09:00 Room Air 11/07/24 08:02 36.8 C 68 16 131/62 94 Room Air
[2024-11-07 13:59] VITALS: PULSE 74
--- NOTE | 2024-11-07 16:29 | Discharge Summary ---
Date of Service November 07, 2024 Admission HPI Per Admitting Provider This is an 79-year-old female with PMH of HTN, macular degeneration who recently established with [facility] due to constipation concern starting 3 weeks ago. History obtained from patient and chart review. Patient experiencing constipation and some abdominal pain and saw GI in clinic initially on 10/31. Dulcolax 5 mg had been ineffective. Passed some liquid with "chunks of stool". Told to stop fiber pill, administered Fleet enema, MiraLAX twice daily. Presented to the ER the next day after no bowel movement and episode of vomiting x 1. CT abd/pelvis done in ER on the 11/01 without blockage seen. Returned to ED on 11/03 with ongoing pain and underwent abdominal CTA that showed no acute finding or significant change. Mild fluid throughout the large bowel. Was prescribed tramadol and Senokot 8.6 mg twice daily and discharged home. Followed up over [employer] messaging with GI provider earlier today and sent over for further workup and consideration of colonoscopy. Still tolerating PO liquids and food. Had a large dinner last night of [place] food. No true bowel movement in 2 weeks but not even passing small amounts of stool or liquid per rectum for 5 days. Abdominal pain is in bandlike distribution across lower abdomen, R>L. Denies issues with constipation or other GI pathology in the past. Does not routinely use NSAIDs. No known recent gastroenteritis. No F/C, lightheadedness, headache, CP, SOB, nausea, vomiting, dysuria. Admission Exam Per Admitting Provider Physical Exam: General Appearance: WD/WN, vitals as above, NAD, sitting up in bed, pleasant but appears uncomfortable Head: normocephalic, atraumatic Eyes: normal inspection, PERRL, conjunctivae normal, anicteric sclerae ENT: external ear and nose normal, oropharynx normal Neck: normal visual inspection Respiratory: normal respiratory effort, lungs clear to auscultation, no wheeze, rales, rhonchi. No accessory muscle use Cardiovascular: regular rate, rhythm, normal peripheral pulses, no BLE edema Abdomen/GI: +hypoactive bowel sounds, soft, TTP RLQ > LLQ Extremities/Musculoskeletal: no cyanosis or clubbing, extremities motor strength 5/5 Neurologic: PERRL, EOMI, accommodation nl, no face palsy, no dysarthria, CN's II-XI intact bilaterally and moves all extremities Psychiatric: A+Ox3, euthymic affect Skin: no rashes, normal color, warm/dry Principal Diagnosis Duodenitis/gastritis, constipation Discharge Exam Lying in bed without any acute distress Constitutional + ill appearing and average body habitus Eyes PERRL, conjunctivae normal, anicteric sclerae ENMT external ear and nose normal, oropharynx normal Neck trachea midline, no thyromegaly Respiratory no respiratory distress Auscultation: lungs clear to auscultation bilaterally Cardiovascular Rate/Rhythm: regular rate and regular rhythm; not tachycardic Heart Sounds: normal S1 and normal S2; no murmur Extremities: no edema Gastrointestinal (Abdomen) Inspection/Auscultation: normal bowel sounds; abdomen not distended Percussion/Palpation: + abdomen tender (Mildly tender in the epigastrium) and abdomen soft Neurologic normal touch/pain/proprioception and moves all extremities; no focal motor deficits Lymphatic no cervical or axillary lymphadenopathy Discharge Data Allergies Allergy/AdvReac Type Severity Reaction Status Date / Time No Known Allergies Allergy Verified 11/05/24 17:25 Consultations 11/05/24 17:33 ED Decision to Admit Stat 11/05/24 18:45 Consult Gastroenterology Routine Ordered Studies 11/05/24 18:44 CT Abdomen and Pelvis [CT abd pelvis wo con] Stat Hospital Course (1) Constipation: (2) Abdominal pain: This is an 79-year-old female with PMH of HTN, macular degeneration who recently established with [facility] due to constipation concern starting 3 weeks ago. Since 10/31 has been seen in clinic by GI and in [facility] ER twice - trialed dulcolax, fleet enemas x 2, discontinued fiber pill, Miralax BID, Senokot bid -11/01: CT abd/pelvis without obstruction or acute change -11/03: CTA abd/pelvis no acute finding or significant change -Directed by GI to ER today due to ongoing discomfort and no bowel movement in 2 weeks -Given Lactulose x 1. Mag citrate added for this evening as needed -CT abd pelvis wo con - moderate duodenal and pylorus wall thickening with edema and surrounding inflammatory change in the mesenteric fat. A small amount of gas is present in the mid duodenum wall, compatible with duodenitis with duodenal ulcer/peptic ulcer disease, appearing in the interval. Severe diverticulosis seen in colon, no diverticulitis. No acute complication at this time. GI consultation suggested. Received lactulose and has been having bowel movements Abdominal symptoms are improved She has been getting Protonix p.o. for possible duodenitis Appreciate GI input and recommendation Will observe her tonight likely discharge tomorrow Her diarrhea is improving and no more constipated She was advised to take oral laxatives as an outpatient Duodenitis Abdominal discomfort/pain likely secondary to duodenitis Has been getting Protonix and will continue on discharge Will need outpatient GI evaluation will start Protonix 40 mg once daily to continue (3) Hypertension: Normotensive at 117/63. Resume home amlodipine and lisinopril when diet advanced Blood pressure is controlled now Her blood pressure medications have been restarted (4) Abnormal finding on CT scan: Incidental Findings on CT abd/pelvis 11/01/24- There is moderate atherosclerotic calcification and mild ectasia of the abdominal aorta. Further work up, management, and follow-up as outpatient No chest pain, HS troponin WNL, ECG ordered in ED - pending, follow As above Plan DVT Ppx: SCDs for now in case of endoscopy tomorrow Code status: FULL PCP: Nathan Kellogg Dispo: Admitted to med/surg She will be discharged home this afternoon Total Time Total Time Spent Total Time Spent (In Minutes): 35 Minutes Discharge Plan Discharge Items Patient Disposition: Home - Self-Care Reason For Visit: CONSTIPATION Discharge Diagnosis: Duodenitis/gastritis, constipation Condition on Discharge: Good Activity: Resume your previous activity Non-emergency contact: Primary Care Provider Call non-emergency contact if: you have any medication questions and your symptoms worsen Follow-up/Referrals: Nathan Kellogg MD [Primary Care Provider] - 11/11/24 1:00 pm Mikayla Cruz CRNP [Outside Practitioners] - 12/12/24 8:30 am (This is your current scheduled appointment. The office will call you for a sooner appointment.) Diet: Heart Healthy Addtl Attending Provider Instructions: Please take precaution to avoid falls Take your medications as advised Please keep appointments with your healthcare providers Try to take [id number] stool softener as needed Pending Studies at Discharge: No Stand-Alone Forms: My [facility] [employer], Smoking Cessation Medications and DC Order Prescriptions: New pantoprazole [Protonix] 40 mg tablet,delayed release (DR/EC) 40 mg PO DAILY Qty: 30 0RF Continued estradiol 0.01 % (0.1 mg/gram) cream 1 applic VAGINAL DAILY PRN (Reason: Dryness) inulin-sorbitol 2 gram Tablet,Chewable 1 tab PO DAILY ondansetron 4 mg tablet,disintegrating 4 mg PO Q8H PRN (Reason: nausea and vomiting) Qty: 10 0RF multivitamin Tablet 1 tab PO HS lisinopril 20 mg Tablet 20 mg PO BID amlodipine 10 mg Tablet 10 mg PO HS sennosides [Senna Laxative] 8.6 mg tablet 8.6 mg PO BID PRN (Reason: constipation) Qty: 14 0RF PreserVision AREDS 2,148 mcg-113 mg-45 mg-17.4mg Tablet 2 tab PO BID Rx Instructions: administer with AM and PM meals bevacizumab [Avastin] 1.25 mg/0.05 mL Syringe See Rx Instructions .ROUTE .COMPLEX Rx Instructions: last injection 4 mo ago Discontinued ketorolac 10 mg tablet 10 mg PO BID PRN (Reason: pain) Qty: 10 0RF Discharge Orders: Discharge Order (Routine); Ordered 11/07/24 Ordered By: Delmy Perez Admission Data Admit Date/Time: 11/05/24 18:58 Attending Provider: Delmy Perez Admit Provider: Juan J Marie Primary Care Provider: Nathan Kellogg Other Providers: Juan J Marie; Estrella Montano Other Interventions: Discharge Summary Assessment (RN) Last Done: 11/07/24 13:56
== END 2024-11-07 14:34 | disposition home or self-care (01) | DRG 392 ==
LOC: ED 14:41 → EDINP 18:58 → SUATTDRO 18:58 → 2N 11-06 00:27